=== PATIENT | female | born 1970 | race African-American/Black ===

== ENCOUNTER 2024-01-14 08:13 | Emergency (ER) | payer MEDICAID, OTHER ==
[~2024-01-14] VITALS: Ht 172.7 cm; Wt 121.3 kg
[2024-01-14 08:46] VITALS: BP 166/96; PULSE 100; RESP 18; TEMP 98.5; O2SAT 97
[2024-01-14] MEDS ORDERED: IBUP1TAB5 PO (09:14)
[2024-01-14] MEDS: KETOROLAC TROMETH 60MG/2ML VIAL IM ONE (09:27)
[2024-01-14] MEDS ORDERED: CEPH500C PO (09:35)
== END 2024-01-14 09:37 | disposition home or self-care (01) ==
LOC: ER 08:15
DX: L02.426 Furuncle of left lower limb (principal); L02.425 Furuncle of right lower limb; Z88.1 Allergy status to other antibiotic agents
CPT/HCPCS: 96372; 99283; J1885